=== PATIENT | male | born 1975 | race African-American/Black ===

== ENCOUNTER 2018-08-01 22:51 | Emergency (ER) | payer SELFPAY ==
[~2018-08-01] VITALS: Ht 175.3 cm; Wt 79.4 kg
[2018-08-01] MEDS ORDERED: TETANUS/DIPHTHERIA TOX ADULT 0.5 ML SYR IM STA (23:17)
== END 2018-08-01 23:29 | disposition home or self-care (01) ==
LOC: FSED 22:51
DX: S61.412A Laceration without foreign body of left hand, initial encounter (principal); W26.0XXA Contact with knife, initial encounter; Y92.008 Other place in unspecified non-institutional (private) residence as the place of occurrence of the external cause
CPT/HCPCS: 90714; 99284